=== PATIENT | male | born 2000 | race Caucasian/White ===

== ENCOUNTER 2024-07-05 09:56 | Emergency (ER) | payer SELFPAY ==
[~2024-07-05] VITALS: Ht 172.7 cm; Wt 72.7 kg
[~2024-07-05 09:56] MED LIST: BENTYL 20MG20 MG/TAB PO; LEVEMIR FLEX100 U/ML SQ; LEVEMIR100 U/ML SQ; NOVOLOG 100U100 U/M1 SQ; NOVOLOG FLEX100 U/ML SQ
[2024-07-05 10:10] VITALS: TEMP 97.9
[2024-07-05] MEDS ORDERED: Dextrose 50% Water 25 GM/50 ML SYRINGE IV ONE (10:30)
[2024-07-05 10:51] LABS: BASO % 0.3 % (0.0-2.0); EOS # 0.4 K/mm3 (0.0-0.7); EOS % 3.4 % (0.0-4.0); GRAN # 6.8 K/mm3 (1.4-6.5); GRAN % 62.8 % (42.2-75.2); HEMATOCRIT 40.6 % (42.0-52.0); HEMOGLOBIN 13.4 g/dl (13.5-18.0); LYMPH # 2.9 K/mm3 (1.2-3.4); LYMPH % 26.4 % (20.0-51.0); MEAN CELL VOLUME 88 fl (80.0-100.0); MEAN CORPUSCULAR HEMOGLOBIN 29 pg (27-31); MEAN CORPUSCULAR HGB CONC 33 g/dl (33.0-37.0); MEAN PLATELET VOLUME 9.3 fl (7.4-10.4); MONO # 0.7 K/mm3 (0.1-0.6); MONO % 6.8 % (1.7-9.3); PLATELET COUNT 322 K/mm3 (130-400); RED BLOOD COUNT 4.61 M/mm3 (4.20-5.60); REDCELL DISTRIBUTION WIDTH-CV 12.5 % (11.5-14.5)
[2024-07-05 11:08] LABS: ALBUMIN 4.3 g/dL (3.5-5.0); C-REACTIVE PROTEIN 0.1 mg/dL (0.00-0.50); CALCIUM 9.5 mg/dL (8.4-10.2); CREATININE, serum 0.81 mg/dL (0.72-1.25); POTASSIUM 3.9 mEq/L (3.5-4.5); TOTAL PROTEIN 7.5 g/dl (6.2-8.1)
[2024-07-05 12:17] LABS: BILIRUBIN,TOTAL 0.5 mg/dL (0.2-1.2)
[2024-07-05 12:50] VITALS: BP 133/80; PULSE 59
== END 2024-07-05 12:57 | disposition home or self-care (01) ==
LOC: COL.ER 09:56
PROVIDERS: Emergency Medicine
DX: E10.649 Type 1 diabetes mellitus with hypoglycemia without coma (principal); Z79.4 Long term (current) use of insulin

== ENCOUNTER 2024-09-12 20:00 | Inpatient (IN) | payer SELFPAY ==
[~2024-09-12] VITALS: Ht 172.7 cm; Wt 65.9 kg
[2024-09-12] VITALS (10 sets, daily range): BP systolic 125–157; BP diastolic 61–90; PULSE 90–100; TEMP 98.7; O2SAT 99–100
[2024-09-12] MEDS ORDERED: Ondansetron 4 MG/2 ML VIAL IV ONE (20:45)
[2024-09-12] MEDS ORDERED: NS 1,000 ML IV ONE (20:45)
[2024-09-12 20:47] LABS: HEMATOCRIT 42.6 % (42.0-52.0); HEMOGLOBIN 14.1 g/dl (13.5-18.0); MEAN CELL VOLUME 90 fl (80.0-100.0); MEAN CORPUSCULAR HEMOGLOBIN 30 pg (27-31); MEAN CORPUSCULAR HGB CONC 33 g/dl (33.0-37.0); MEAN PLATELET VOLUME 9.8 fl (7.4-10.4); PLATELET COUNT 268 K/mm3 (130-400); RED BLOOD COUNT 4.72 M/mm3 (4.20-5.60); REDCELL DISTRIBUTION WIDTH-CV 12.8 % (11.5-14.5)
[2024-09-12 20:55] LABS: ACETONE,SERUM MODERATE
[2024-09-12 21:04] LABS: ALANINE AMINOTRANSFERASE 31 U/L (0-55); ALBUMIN 4.9 g/dL (3.5-5.0); ALKALINE PHOSPHATASE 77 U/L (40-150); ANION GAP 26 mmol/L (7-16); AST,SGOT 29 U/L (5-34); BILIRUBIN,TOTAL 1.6 mg/dL (0.2-1.2); BLOOD UREA NITROGEN 25 mg/dL (9-21); CALCIUM 9.8 mg/dL (8.4-10.2); CHLORIDE 99 mEq/L (98-107); CREATININE, serum 1.48 mg/dL (0.72-1.25); POTASSIUM 5.1 mEq/L (3.5-4.5); SODIUM 137 mEq/L (136-145)
[2024-09-12 21:05] LABS: GLUCOSE 405 mg/dL (70-99)
[2024-09-12 21:08] LABS: BASOPHIL 1 % (0-2); LYMPHOCYTE 3 % (20.0-51.0); NEUTROPHILS 93 % (42.0-75.2); PLATELET ESTIMATE NORMAL (NORMAL)
[2024-09-12] MEDS ORDERED: Insulin Human Regular/NS 100 ML IV ONE (21:15)
[2024-09-12] MEDS ORDERED: Ondansetron 4 MG/2 ML VIAL IV PRN (21:30)
[2024-09-12] MEDS ORDERED: Acetaminophen 325 MG TAB PO PRN (21:30)
[2024-09-12] MEDS ORDERED: NS & 20 mEq KCl 1,000 ML IV SCH (21:30)
[2024-09-12 22:32] LABS: COLLECTION METHOD CLEAN CATCH
[2024-09-12 22:36] LABS: CALCIUM 8.8 mg/dL (8.4-10.2); CREATININE, serum 1.12 mg/dL (0.72-1.25); POTASSIUM 4.7 mEq/L (3.5-4.5)
[2024-09-12 22:40] LABS: URINE APPEARANCE CLEAR (CLEAR/HAZY); URINE BLOOD NEGATIVE (NEGATIVE); URINE COLOR YELLOW (YELLOW); URINE GLUCOSE 3+ (NEGATIVE); URINE KETONE 4+ (NEGATIVE); URINE NITRATE NEGATIVE (NEGATIVE); URINE PROTEIN(semi-quant) NEGATIVE (NEGATIVE); URINE UROBILINOGEN 0.2 E.U/dL (0.2-1.0)
--- NOTE | 2024-09-12 23:18 | NUR ---
PATIENT ARRIVED ON THE UNIT AT 2318. PATIENT WAS ESCORTED BY ED NURSE. PATIENT WAS THEN TRANSFERRED OVER TO THE ICU BED BY WALKING HIMSELF. PATIENT NOTED TO BE WALKING WITH GOOD STABILITY. PATIENT WAS CONNECTED TO THE ICU MONITORS. VITAL SIGNS NOTED TO BE WITHIN NORMAL LIMITS AT THIS TIME. PATIENT HAS A 20G TO THE LEFT AC WITH INSULIN RUNNING AT 5 ML/HR. NO INFILTRATION OR PHELBITIS NOTED. PATIENT ORIENTED TO NURSE AND ROOM. PATIENT STATED NO CONCERNS AT THIS TIME. BED IN LOW POSITION, WHEELS LOCKED, AND CALL LIGHT WITHIN THE PATIENT'S REACH.
[2024-09-13] VITALS (312 sets, daily range): BP systolic 125–133; BP diastolic 57–58; PULSE 65–90; TEMP 97.9–98.9; O2SAT 88–100
[2024-09-13] MEDS ORDERED: D5 1/2 NS & 20 mEq KCl 1,000 ML IV SCH (00:45)
[2024-09-13 02:34] LABS: CALCIUM 8.8 mg/dL (8.4-10.2); CREATININE, serum 1.07 mg/dL (0.72-1.25); POTASSIUM 4.7 mEq/L (3.5-4.5)
[2024-09-13] MEDS ORDERED: Insulin Glargine-ygfn (Lantus) SQ SCH (04:00)
[2024-09-13 06:14] LABS: BASO % 0.2 % (0.0-2.0); EOS % 0.2 % (0.0-4.0); GRAN # 13.2 K/mm3 (1.4-6.5); GRAN % 74.9 % (42.2-75.2); HEMATOCRIT 38.2 % (42.0-52.0); HEMOGLOBIN 13.1 g/dl (13.5-18.0); LYMPH # 3.2 K/mm3 (1.2-3.4); LYMPH % 18.4 % (20.0-51.0); MEAN CELL VOLUME 87 fl (80.0-100.0); MEAN CORPUSCULAR HEMOGLOBIN 30 pg (27-31); MEAN CORPUSCULAR HGB CONC 34 g/dl (33.0-37.0); MEAN PLATELET VOLUME 9.4 fl (7.4-10.4); MONO # 1.1 K/mm3 (0.1-0.6); PLATELET COUNT 270 K/mm3 (130-400); RED BLOOD COUNT 4.39 M/mm3 (4.20-5.60); REDCELL DISTRIBUTION WIDTH-CV 12.9 % (11.5-14.5)
--- NOTE | 2024-09-13 06:14 | NUR ---
PATIENT HAS AN UNEVENTFUL NIGHT. IVF AND IV INSULIN SHUT OFF AT 0600 PER PROVIDERS ORDERS. PATIENT SLEEPING AT THIS TIME. 0600 BLOOD SUGAR WAS 172. ONCOMING NURSE WILL NEED TO DRAW ANOTHER BLOOD SUGAR AT 0700. PATIENT'S VITAL SIGNS ARE STILL WNL. PATIENT STILL HAS A 20 G TO THE L AC, SALINE LOCKED AT THIS TIME. BED IS IN LOW POSITION, WHEELS LOCKED, AND CALL LIGHT WITHIN THE PATIENT'S REACH.
[2024-09-13 06:33] LABS: CALCIUM 8.7 mg/dL (8.4-10.2); CREATININE, serum 1.03 mg/dL (0.72-1.25); POTASSIUM 4.3 mEq/L (3.5-4.5)
--- NOTE | 2024-09-13 07:00 | NUR ---
REPORT RECEIVED FROM NAYA DUNNE. PT RESTING IN BED, VSS. NO DRIPS INFUSING AT THIS TIME. PT IS ALERT AND ORIENTED, USES CALL LIGHT FOR NEEDS.
[2024-09-13] MEDS ORDERED: Insulin Lispro (HumaLOG) SQ SCH (08:57)
[2024-09-13] MEDS ORDERED: Influenza Virus Vaccine, Trivalent '24-25 0.5 ML SYRINGE IM SCH (09:00)
[2024-09-13] MEDS ORDERED: Famotidine 20 MG TAB PO SCH (09:00)
[2024-09-13 10:00] LABS: BASO % 0.2 % (0.0-2.0); EOS % 0.2 % (0.0-4.0); GRAN # 13.1 K/mm3 (1.4-6.5); GRAN % 82.6 % (42.2-75.2); HEMATOCRIT 40.4 % (42.0-52.0); HEMOGLOBIN 13.5 g/dl (13.5-18.0); LYMPH % 12.5 % (20.0-51.0); MEAN CELL VOLUME 88 fl (80.0-100.0); MEAN CORPUSCULAR HEMOGLOBIN 30 pg (27-31); MEAN CORPUSCULAR HGB CONC 33 g/dl (33.0-37.0); MEAN PLATELET VOLUME 9.4 fl (7.4-10.4); MONO # 0.7 K/mm3 (0.1-0.6); MONO % 4.2 % (1.7-9.3); PLATELET COUNT 274 K/mm3 (130-400); RED BLOOD COUNT 4.58 M/mm3 (4.20-5.60); REDCELL DISTRIBUTION WIDTH-CV 13.1 % (11.5-14.5)
[2024-09-13 10:18] LABS: CALCIUM 9.3 mg/dL (8.4-10.2); POTASSIUM 4.9 mEq/L (3.5-4.5)
--- NOTE | 2024-09-13 10:19 | NUR ---
Bakery Chef met with patient to discuss discharge planning. Patient lives in [place] and sees Dr. Mix for primary care. Patient is diabetic and advised he gets his insulin through the [facility]. SW also discussed the [facility], which opens next month as a back up option. Patient does not use any other DME besides diabetic supplies and is independent with [facility]. Patient does not have DPOA-HC and was not interested in completing one at this time. Patient is not and has no children. Patient's mother is and his father is estranged. Patient has a brother, Palomo (ph#[phone]). Discharge Plan: Home
== END 2024-09-13 15:00 | disposition home or self-care (01) | DRG 682 ==
LOC: COL.ER 20:00 → ICU 21:17
PROVIDERS: Internal Medicine; Nurse Practitioner; Physician Assistant; ADMIT Internal Medicine
DX: N17.9 Acute kidney failure, unspecified (principal); E10.10 Type 1 diabetes mellitus with ketoacidosis without coma; D72.829 Elevated white blood cell count, unspecified; F17.210 Nicotine dependence, cigarettes, uncomplicated
CPT/HCPCS: J1815; J2405; J3480; J7030